=== PATIENT | female | born 1955 | race Caucasian/White ===

== ENCOUNTER 2018-11-20 04:54 | Emergency (ER) | payer OTHER ==
[~2018-11-20] VITALS: Ht 160 cm; Wt 106.3 kg
[~2018-11-20 04:54] MED LIST: ATEN-51 PO; CLON0.5T14 PO; GLIP5TAB13 PO; LISI-313 PO
[2018-11-20 04:55] VITALS: Ht 160 cm; Wt 106.3 kg
[2018-11-20] MEDS ORDERED: AZIT250T13 PO (05:11)
[2018-11-20] MEDS ORDERED: BENZ-6 PO (05:12)
[2018-11-20 05:15] VITALS: BP 136/63; PULSE 77; RESP 18
--- NOTE | 2018-11-20 05:19 | ERD ---
ER Documentation Chief Complaint Chief Complaint LEFT EAR DRAINING XTODAY WITH RIGHT EAR PAIN AND COUGH ON/OFF [id number] HPI 63-year-old female presenting with left earache that started today. She has been coughing on and off for the past 2 to 3 weeks. She also has complaining of itchy eyes. No fevers or chills. She had some ringing in her left ear earlier today but not currently. No associated headache, vision disturbance, dizziness, focal weakness or numbness. ROS All systems reviewed and are negative except as per history of present illness. Medications Home Meds Active Scripts Benzonatate* (Tessalon Perle*) 100 Mg Capsule, 100 MG PO Q8H PRN for COUGH, #20 CAP Prov:KARRI SLOAN MD 11/20/18 Azithromycin* (Azithromycin*) 250 Mg Tablet, 250 MG PO DAILY, #6 TAB Take 2 tabs on day 1, then 1 tab daily on Day 2-5 Prov:KARRI SLOAN MD 11/20/18 Reported Medications Clonazepam* (Clonazepam*) 0.5 Mg Tablet, 0.5 MG PO BID PRN for ANXIETY, TAB 04/25/15 Lisinopril* (Lisinopril*) 5 Mg Tablet, 5 MG PO DAILY, #30 TAB 04/25/15 Atenolol* (Atenolol*) 25 Mg Tablet, 25 MG PO DAILY, TAB 04/25/15 Glipizide* (Glipizide*) 5 Mg Tablet, 5 MG PO DAILY, TAB 04/25/15 Allergies Allergies: Coded Allergies: glimepiride (Unverified Allergy, Unknown, 04/25/15) hydrochlorothiazide (Verified Allergy, Unknown, 04/25/15) metformin (Verified Allergy, Unknown, 04/25/15) PMhx/Soc History of Surgery: No Anesthesia Reaction: No Hx Neurological Disorder: No Hx Respiratory Disorders: No Hx Cardiac Disorders: Yes (HTN) Hx Psychiatric Problems: No Hx Miscellaneous Medical Probl: Yes (DM, ANXIETY) Hx Alcohol Use: No Hx Substance Use: No Hx Tobacco Use: No FmHx Family History: No coronary disease Physical Exam Vitals Vital Signs Date Temp Pulse Resp B/P (MAP) Pulse Ox O2 O2 Flow FiO2 Time Delivery Rate 11/20/18 97.8 82 18 170/75 98 04:55 (106) Physical Exam Const: No acute distress Head: Atraumatic Eyes: Normal Conjunctiva ENT: Normal External Ears, Nose and Mouth. Left tympanic membrane erythematous with loss of light reflex. No TM perforation. External canal normal. Right external canal and TM normal. No mastoid tenderness. Neck: Full range of motion. No meningismus. No cervical lymphadenopathy Resp: Clear to auscultation bilaterally Cardio: Regular rate and rhythm, no murmurs Ext: No cyanosis, or edema Neur: Awake and alert, no facial asymmetry Procedures/MDM Patient's exam is consistent with left otitis media. Given she is allergic to penicillin per the daughter, I prescribed azithromycin. I doubt pneumonia. See ms like she also has symptoms of allergies for which I recommended buying Zyrtec or Claritin. I also gave her Tessalon Perles for cough. Return precautions were discussed. At this time I feel she is stable for discharge. All questions were answered. Patient's blood pressure was elevated (>120/80) but appears stable without evidence of hypertension emergency or urgency. The patient was counseled about the risks of hypertension and urged to pursue outpatient monitoring and therapy within a week with their primary care physician. Departure Diagnosis: Primary Impression: Otitis media of left ear Otitis media type: unspecified Qualified Codes: H66.92 - Otitis media, unspecified, left ear Additional Impressions: Itchy eyes Cough Condition: Stable Patient Instructions: Allergy Medications: [id number], Otitis Media, Abx Tx (Adult) KARRI SLOAN MD Nov 20, 2018 05:19
== END 2018-11-20 05:25 | disposition home or self-care (01) ==
LOC: E/R 04:54
DX: H66.92 Otitis media, unspecified, left ear (principal); H57.89 Other specified disorders of eye and adnexa; R05 Cough; I10 Essential (primary) hypertension; E11.9 Type 2 diabetes mellitus without complications; Z79.84 Long term (current) use of oral hypoglycemic drugs
CPT/HCPCS: Z7502; Z7610; 99283